=== PATIENT | male | born 1965 | race Caucasian/White ===

== ENCOUNTER 2019-05-09 21:42 | Inpatient (IN) | payer MEDICAID ==
[~2019-05-09] VITALS: Ht 177.8 cm; Wt 72.6 kg
--- NOTE | 2019-05-09 21:42 | NUR ---
BIB EMS FROM [facility] C/O WITNESS SYNCOPE. PER EMS PT WAS ASSISTED TO GROUND. NO OBVIOUS TRAUMA NOTED. BP 82/50 NS 150ML'S GIVEN BY EMS. TO ER BED 5, HOOKED TO MONITOR, CHANGED TO HOSP GOWN, WARM BLANKET PROVIDED. AWAITING MD HYATT.
--- NOTE | 2019-05-09 21:55 | NUR ---
STEAK SAUCE MAKER DEGRASSE AT BEDSIDE
[2019-05-09 22:31] LABS: BASOPHILS # (AUTO) 0.1 /CMM (0.0-0.2); BASOPHILS % (AUTO) 0.9 % (0.0-2.0); EOSINOPHILS % (AUTO) 1.7 % (0.0-6.0); HEMATOCRIT 35 % (39-51); HEMOGLOBIN 11.6 g/dL (13.5-17.5); LYMPHOCYTES # (AUTO) 2.5 /CMM (0.8-4.8); LYMPHOCYTES % (AUTO) 35.5 % (20.0-44.0); MEAN CORPUSCULAR HGB CONC 34 g/dl (31.0-36.0); MEAN CORPUSCULAR VOLUME 91 fL (80-96); MONOCYTES # (AUTO) 0.7 /CMM (0.1-1.30); MONOCYTES % (AUTO) 10.3 % (2.0-12.0); NEUTROPHILS # (AUTO) 3.6 /CMM (1.8-8.9); NEUTROPHILS % (AUTO) 51.6 % (43.0-81.0); PLATELET COUNT (AUTO) 372 /CMM (150-450)
--- NOTE | 2019-05-09 22:32 | NUR ---
DR BATEMAN AT BEDSIDE
[2019-05-09 22:41] LABS: CALCIUM, SERUM 8.7 mg/dL (8.5-10.1); CARBON DIOXIDE 29 mmol/L (21-32); CHLORIDE 105 mmol/L (98-107); CREATININE 1.1 mg/dL (0.6-1.3); GLUCOSE 68 mg/dL (74-106); POTASSIUM 4.5 mmol/L (3.5-5.1); SODIUM SERUM 138 mmol/L (136-145); UREA NITROGEN, BLOOD 30 mg/dL (7-18)
[2019-05-09 22:47] LABS: ALANINE AMINOTRANSFERASE 12 U/L (12-78); ALKALINE PHOSPHATASE 72 U/L (46-116); ASPARTATE AMINOTRANSFERASE 11 U/L (15-37); BILIRUBIN,TOTAL 0.1 mg/dL (0.2-1.0); TOTAL PROTEIN, SERUM 6.2 g/dL (6.4-8.2)
--- NOTE | 2019-05-09 22:47 | NUR ---
PATIENT BACK FROM CT SCAN
[2019-05-09] MEDS ORDERED: IV NS 0.9% 1,000 ML BAG IV ONE (23:30)
--- NOTE | 2019-05-09 23:34 | NUR ---
ZAIN PERAZA AT BEDSIDE
[2019-05-09] MEDS ORDERED: IV NS 0.9% 1,000 ML IV PRN (23:41)
[2019-05-10] VITALS (8 sets, daily range): BP systolic 105–142; BP diastolic 59–85
[2019-05-10] MEDS ORDERED: ZOLPIDEM TARTRATE 5 MG TABLET PO PRN
[2019-05-10] MEDS ORDERED: MAG HYDROX/AL HYDROX/SIMETH 30 ML UDC PO PRN
[2019-05-10] MEDS ORDERED: ONDANSETRON HCL/PF 4 MG/2 ML VIAL IVP PRN
[2019-05-10] MEDS ORDERED: HYDROCODONE/APAP 5/325MG 1 EACH TABLET PO PRN
[2019-05-10] MEDS ORDERED: MAGNESIUM HYDROXIDE 30 ML UDC PO PRN
[2019-05-10] MEDS ORDERED: DEXTROSE 50%-WATER 50 ML DISP.SYRIN IV PRN
[2019-05-10] MEDS ORDERED: Z GUARD REMEDY 2 OZ OINT TP PRN
[2019-05-10] MEDS ORDERED: ACETAMINOPHEN 325 MG TABLET PO PRN
--- NOTE | 2019-05-10 00:37 | NUR ---
BED ASSIGNMENT TELE 114-1
--- NOTE | 2019-05-10 00:47 | NUR ---
REPORT GIVEN TO DIMITRI DALTON FOR CHRISTNI
[2019-05-10] MEDS ORDERED: MIRT15TA7 PO (00:54)
[2019-05-10] MEDS ORDERED: INSU100V7 SQ (00:54)
[2019-05-10] MEDS ORDERED: TRAZ-182 PO (00:54)
[2019-05-10] MEDS ORDERED: METF-442 PO (00:54)
[2019-05-10] MEDS ORDERED: QUET100T PO (00:54)
--- NOTE | 2019-05-10 01:27 | NUR ---
PT TRANSFERRED PER [facility]
[2019-05-10 06:55] LABS: BASOPHILS # (AUTO) 0.1 /CMM (0.0-0.2); BASOPHILS % (AUTO) 0.8 % (0.0-2.0); EOSINOPHILS % (AUTO) 2.3 % (0.0-6.0); HEMATOCRIT 34 % (39-51); HEMOGLOBIN 11.5 g/dL (13.5-17.5); LYMPHOCYTES # (AUTO) 2.2 /CMM (0.8-4.8); LYMPHOCYTES % (AUTO) 31.5 % (20.0-44.0); MEAN CORPUSCULAR HGB CONC 34 g/dl (31.0-36.0); MEAN CORPUSCULAR VOLUME 90 fL (80-96); MONOCYTES # (AUTO) 0.7 /CMM (0.1-1.30); MONOCYTES % (AUTO) 9.6 % (2.0-12.0); NEUTROPHILS # (AUTO) 3.9 /CMM (1.8-8.9); NEUTROPHILS % (AUTO) 55.8 % (43.0-81.0); PLATELET COUNT (AUTO) 386 /CMM (150-450); RED BLOOD CELL COUNT(AUTO) 3.82 MIL/uL (4.5-6.0)
[2019-05-10 07:08] LABS: CALCIUM, SERUM 8.3 mg/dL (8.5-10.1); CREATININE 0.8 mg/dL (0.6-1.3); MAGNESIUM 1.6 mg/dL (1.8-2.4); PHOSPHORUS 3.1 mg/dL (2.5-4.9); POTASSIUM 4.3 mmol/L (3.5-5.1)
[2019-05-10 07:20] LABS: THYROID STIMULATING HORMONE 3.238 uIU/mL (0.358-3.74)
[2019-05-10] MEDS: PANTOPRAZOLE 40 MG TABLET.DR PO SCH (08:56)
[2019-05-10] MEDS: BLOOD SUGAR DIAGNOSTIC 1 EACH STRIP IN SCH ×4 (08:57→22:04)
[2019-05-10] MEDS ORDERED: INSU100V3 SQ (09:42)
[2019-05-10] MEDS ORDERED: MAG30ORA PO (09:42)
[2019-05-10] MEDS: Magnesium 1GM/D5W 100ML PREMIX 100 ML IV SCH ×2 (10:16→11:55)
[2019-05-10] MEDS: IV NS 0.9% 1,000 ML IV PRN ×2 (11:36→17:43)
--- NOTE | 2019-05-10 11:36 | NUR ---
TRANSFER OF CARE NOTE PT WAS RECEIVED FROM KRYSTLE PORTER AT THIS TIME, A/O X2 ON TELE SHOWING SR 80'S, NOTED TO HAVE LEFT ELBOW SKIN TEAR, IV IS PATENT AND INTACT, SAFETY PRECAUTIONS IN PLACE, CALL LIGHT IN REACH, WILL MONITOR ACCORDINGLY
--- NOTE | 2019-05-10 12:00 | NUR ---
rn note messaged dr han re [facility], per pt request, pt reports unable to fall or stay asleep, previous medication, ambien did not help. no response yet from . endorsed to ana Tracy for [place].
[2019-05-10] MEDS: INSULIN REGULAR, HUMAN 100 UNIT/ML 3 ML VIAL SQ PRN ×3 (12:12→22:07)
[2019-05-10 12:19] LABS: IRON, SERUM 50 ug/dl (50-175); TOTAL IRON BINDING CAPACITY 225 ug/dl (250-450)
[2019-05-10] MEDS ORDERED: TEMAZEPAM 15 MG CAPSULE PO PRN (12:30)
[2019-05-10 12:33] LABS: FERRITIN 33 ng/mL (8-388)
--- NOTE | 2019-05-10 18:27 | NUR ---
RN CLOSING NOTE PT IN BED AT LOWEST AND LOCKED POSITION A/O X2-3 BREATHING EVEN AND UNLABORED ON RA WITH NO S/S OF ANY DISTRESS OR PAIN NOTED AT THIS TIME, IV IS PATENT AND INTACT WITH IVF RUNNING AT 125 ML/HR, SAFETY PRECAUTIONS IN PLACE, CALL LIGHT IN REACH, ALL NEEDS ATTENDED TO, WILL ENDORSE TO NIGHT RN FOR CHRISTIN.
--- NOTE | 2019-05-10 19:20 | NUR ---
RN OPENING NOTE RECEIVED PATIENT RESTING IN BED. A&O X4. BREATHING EVEN AND NON LABORED. NO SOB NOTED. IN NO APPARENT DISTRESS NOTED AT THIS TIME. AMBULATORY WITHOUT ASSISTANCE. MOTIVATED TO SELF CARE. BED IS LOWERED TO LOW POSITION AND LOCKED FOR SAFETY. CALL LIGHT IS WITHIN REACH. WILL CONTINUE TO MONITOR.
[2019-05-11] VITALS: BP 126/74
[2019-05-11] MEDS: IV NS 0.9% 1,000 ML IV PRN (01:51)
[2019-05-11 04:00] VITALS: BP 147/87
--- NOTE | 2019-05-11 07:01 | NUR ---
RN CLOSING NOTE PATIENT IS IN BED RESTING WITH HOB ELEVATED. A&O X4. ABLE TO MAKE NEEDS KNOWN. BREATHING EVEN AND NON LABORED. AMBULATORY WITH WALKER. ALL DUE MEDS GIVEN AND TOLERATED WELL. ON IV HYDRATION NS @ 125 MLS/HR. PATIENT IS KEPT CLEAN, DRY, AND COMFORTABLE. MOTIVATED TO SELF CARE. WILL ENDORSE TO AM SHIFT RN FOR CONTINUATION OF CARE.
[2019-05-11 07:23] LABS: BASOPHILS # (AUTO) 0.1 /CMM (0.0-0.2); BASOPHILS % (AUTO) 0.8 % (0.0-2.0); EOSINOPHILS % (AUTO) 2.2 % (0.0-6.0); HEMATOCRIT 36 % (39-51); HEMOGLOBIN 11.9 g/dL (13.5-17.5); LYMPHOCYTES # (AUTO) 2.4 /CMM (0.8-4.8); LYMPHOCYTES % (AUTO) 38.8 % (20.0-44.0); MEAN CORPUSCULAR HGB CONC 33 g/dl (31.0-36.0); MEAN CORPUSCULAR VOLUME 90 fL (80-96); MONOCYTES # (AUTO) 0.6 /CMM (0.1-1.30); MONOCYTES % (AUTO) 9.4 % (2.0-12.0); NEUTROPHILS # (AUTO) 3.1 /CMM (1.8-8.9); NEUTROPHILS % (AUTO) 48.8 % (43.0-81.0); PLATELET COUNT (AUTO) 377 /CMM (150-450); RED BLOOD CELL COUNT(AUTO) 3.99 MIL/uL (4.5-6.0); WHITE BLOOD COUNT (AUTO) 6.3 K/uL (4.3-11.0)
[2019-05-11] MEDS: PANTOPRAZOLE 40 MG TABLET.DR PO SCH (07:43)
[2019-05-11] MEDS: BLOOD SUGAR DIAGNOSTIC 1 EACH STRIP IN SCH ×2 (07:49→12:14)
[2019-05-11 07:53] LABS: ALANINE AMINOTRANSFERASE 21 U/L (12-78); ALBUMIN 2.9 g/dL (3.4-5.0); ALKALINE PHOSPHATASE 70 U/L (46-116); ASPARTATE AMINOTRANSFERASE 14 U/L (15-37); BILIRUBIN,TOTAL 0.2 mg/dL (0.2-1.0); CALCIUM, SERUM 8.5 mg/dL (8.5-10.1); CARBON DIOXIDE 28 mmol/L (21-32); CHLORIDE 103 mmol/L (98-107); CREATININE 0.8 mg/dL (0.6-1.3); GLUCOSE 239 mg/dL (74-106); MAGNESIUM 1.6 mg/dL (1.8-2.4); PHOSPHORUS 2.9 mg/dL (2.5-4.9); POTASSIUM 4.5 mmol/L (3.5-5.1); SODIUM SERUM 137 mmol/L (136-145); TOTAL PROTEIN, SERUM 6.1 g/dL (6.4-8.2); UREA NITROGEN, BLOOD 14 mg/dL (7-18)
[2019-05-11] MEDS: INSULIN REGULAR, HUMAN 100 UNIT/ML 3 ML VIAL SQ PRN ×2 (07:54→12:34)
--- NOTE | 2019-05-11 07:55 | NUR ---
RN OPENING NOTES RECEIVED PT IN BED, A/O X4. VERBALLY RESPONSIVE AND ABLE TO MAKE NEEDS KNOWN. DENIES ANY PAIN AT THE MOMENT. IN NO APPARENT DISTRESS NOTED. ON ROOM AIR, NO SOB NOTED. IV ACCESS ON L FA #20 WITH ON NS @125 ML/HR RUNNING WITH REMAINING 400ML ON THE BAG. NO INFILTRATION NOTED ON THE SITE. BED ON LOWEST POSITION AND LOCKED. CALL LIGHT WITHIN REACH FOR EASY ACCESS. WILL CONTINUE TO MONITOR
[2019-05-11 08:00] VITALS: BP 127/86
[2019-05-11] MEDS: Magnesium 1GM/D5W 100ML PREMIX 100 ML IV SCH ×2 (09:06→10:12)
--- NOTE | 2019-05-11 13:41 | NUR ---
RN NOTES PATIENT IN BED, A/O X4. VERBALLY RESPONSIVE AND ABLE TO MAKE NEEDS KNOWN. PHYSICALLY AND MENTALLY STABLE. WAS ABLE TO FINISHED HIS BREAKFAST AND LUNCH TRAY. VERBALIZED OF FEELING BETTER . NO SUICIDAL THOUGHTS NOTED. ALL NEEDS MET AT THE MOMENT.
--- NOTE | 2019-05-11 13:50 | NUR ---
RN NOTES CALLED [facility] AND GAVE REPORT TO JACQUES.
--- NOTE | 2019-05-11 14:00 | NUR ---
EMPLOYEE SERVICES MANAGER NOTES PATIENT IN BED, IN STABLE CONDITION, WAITING FOR THE CAB TO PICK HIM UP.
--- NOTE | 2019-05-11 14:05 | NUR ---
RN NOTES PATIENT ACCOMPANIED BY TEAR DOWN WORKER TO THE LOBBY, IN STABLE CONDITION. DENIES ANY PAIN AT THE MOMENT. IV ACCESS REMOVED AND DISCHARGE INSTRUCTION GIVEN AND HANDED THE EXIT PACKET.
== END 2019-05-11 14:00 | disposition home or self-care (01) | DRG 48 ==
LOC: ER 21:43 → TELE1 05-10 00:56 → MEDSG1 05-11 10:30
PROVIDERS: ADMIT Nurse Practitioner Acute Care; ATTEND Internal Medicine
DX: G90.8 Other disorders of autonomic nervous system (principal); N17.0 Acute kidney failure with tubular necrosis; F20.9 Schizophrenia, unspecified; E83.42 Hypomagnesemia; D63.8 Anemia in other chronic diseases classified elsewhere; E11.9 Type 2 diabetes mellitus without complications; B19.20 Unspecified viral hepatitis C without hepatic coma; E86.0 Dehydration; F32.9 Major depressive disorder, single episode, unspecified; I10 Essential (primary) hypertension; K21.9 Gastro-esophageal reflux disease without esophagitis; Z86.718 Personal history of other venous thrombosis and embolism; F17.200 Nicotine dependence, unspecified, uncomplicated; G47.09 Other insomnia; F29 Unspecified psychosis not due to a substance or known physiological condition
CPT/HCPCS: 36415; 70450-TC; 80048-TC; 80053-TC; 80061-TC; 80076-TC; 80305; 82728-TC; 82962-TC; 83540-TC; 83735-TC; 84100-TC; 84443-TC; 84484-TC; 85025-TC; 85730-TC; 87081-TC; 93307-TC; 97116-TC; 97530-TC; G0378; J1815; J3475; J7030